=== PATIENT | female | born 1990 | race Caucasian/White ===

== ENCOUNTER 2016-12-06 04:25 | Inpatient (IN) ==
[2016-12-06 05:52] LABS: URINE SOURCE VOIDED
[2016-12-06 06:10] LABS: BILIRUBIN URINE NEGATIVE (NEGATIVE); BLOOD URINE 3+ (NEGATIVE); CLARITY SL. CLOUDY (CLEAR); COLOR YELLOW; GLUCOSE URINE NEGATIVE (NEGATIVE); LEUKOCYTES URINE TRACE (NEGATIVE); NITRITE URINE NEGATIVE (NEGATIVE); PROTEIN URINE 2+(100 mg/dL) mg/dL (NEGATIVE); SP GRAVITY URINE 1.005; UROBILINOGEN URINE NORMAL
[2016-12-06] MEDS ORDERED: KEFZOL 1 GM/D5W 1 GM/50 ML IVPB IV PRN (06:29)
[2016-12-06] MEDS ORDERED: REGLAN PO ONE (06:29)
[2016-12-06] MEDS ORDERED: ZOFRAN IV PRN (06:29)
[2016-12-06] MEDS ORDERED: PITOCIN 30 UNITS/LR 30 UNITS/500 ML IV.SOLN IV SCH (06:29)
[2016-12-06] MEDS ORDERED: TYLENOL PO PRN (06:29)
[2016-12-06] MEDS ORDERED: PEPCID IV PRN (06:29)
[2016-12-06] MEDS ORDERED: PEPCID PO PRN (06:29)
[2016-12-06] MEDS ORDERED: PEPCID PO ONE (06:29)
[2016-12-06] MEDS ORDERED: STADOL IV PRN (06:29)
[2016-12-06] MEDS ORDERED: SODIUM CHLORIDE 0.9% INJ SCH (06:30)
[2016-12-06] MEDS ORDERED: FENTANYL-BUPIV-NS 2 MCG-0.1% 200 ML EPIDURAL PRN (07:04)
[2016-12-06] MEDS: LR 1,000 ML IV SCH ×3 (07:50→16:09)
[2016-12-06 08:15] LABS: MANUAL DIFF NEEDED? NO
[2016-12-06 08:56] LABS: HEMATOCRIT 34.3 % (37.0-47.0); HEMOGLOBIN 10.9 g/dL (12.0-16.0); MCH 25.5 PG (27-31); MCHC 31.8 g/dL (33-37); MCV 80.1 FL (81-99); MPV 11.6 FL (7.4-10.4); PLT 228 X1000 (130-400); RBC 4.28 XMIL (4.2-5.4)
[2016-12-06 08:57] LABS: BASO% 0.2 % (0.0-0.8); EOS# 0.14 X1000 (0.0-0.7); EOS% 1.1 % (0.0-10.0); LYMPH# 2.22 X1000 (1.2-3.4); LYMPH% 14.8 % (20.5-51.1); MONO% 6.4 % (1.7-9.3)
[2016-12-06] MEDS ORDERED: MINERAL OIL TOP ONE ×2 (09:31→12:15)
[2016-12-06] MEDS ORDERED: XYLOCAINE-MPF 1% INJ ONE (09:31)
[2016-12-06] MEDS ORDERED: PERCOCET-5 PO PRN (17:55)
[2016-12-06] MEDS ORDERED: BENADRYL PO PRN (17:55)
[2016-12-06] MEDS ORDERED: MINERAL OIL PO PRN (17:55)
[2016-12-06] MEDS ORDERED: M-M-R II VACCINE SUBQ ONE (17:55)
[2016-12-06] MEDS ORDERED: PERCOCET-10 PO PRN (17:55)
[2016-12-06] MEDS ORDERED: BENADRYL IV PRN (17:55)
[2016-12-06] MEDS ORDERED: XYLOCAINE-MPF 1% INJ PRN (17:55)
[2016-12-06] MEDS ORDERED: PITOCIN 20 UNITS/LR 20 UNITS/1,000 ML IV.SOLN IV SCH (17:55)
[2016-12-06] MEDS ORDERED: PERI MEDS (DERMOPLAST/NUPERCAINAL/TUCKS) MISC PRN (17:55)
[2016-12-06] MEDS ORDERED: NORCO-5 PO PRN (17:55)
[2016-12-06] MEDS ORDERED: HYDROXYZINE PO PRN (17:55)
[2016-12-06] MEDS ORDERED: PITOCIN 30 UNITS/LR 30 UNITS/500 ML IV.SOLN IV ONE (17:55)
[2016-12-06] MEDS ORDERED: CYTOTEC PO PRN (17:55)
[2016-12-06] MEDS ORDERED: BOOSTRIX VACCINE IM ONE (17:55)
[2016-12-06] MEDS ORDERED: PITOCIN IM PRN (17:55)
[2016-12-06] MEDS ORDERED: HYDROXYZINE IM PRN (17:55)
[2016-12-06] MEDS ORDERED: AMBIEN PO PRN (17:55)
[2016-12-06] MEDS: PERICOLACE PO SCH (21:05)
[2016-12-07] MEDS: MOTRIN PO PRN ×2 (03:06→16:09)
[2016-12-07] MEDS: NORCO-10 PO PRN ×2 (03:06→12:08)
--- NOTE | 2016-12-07 05:26 | OPERATIVE NOTE ---
PROCEDURE DATE: 12/06/2016 DELIVERING PHYSICIAN: Esa Wesley MD TYPE OF DELIVERY: Spontaneous controlled vaginal delivery. ANESTHESIA: Epidural. FINDINGS: At 1720 hours, a 7 pound 4 ounce female infant was delivered in occipitoanterior presentation. Apgars were 9 at 1 minute and 10 at 5 minutes. SUMMARY: Sheila Pop is a 26-year-old, 2, para 1-0-0-1, at 38-1/2 weeks' gestation. Her blood type is A positive. Rubella immune. Hepatitis B surface antigen, HIV, and group B strep are negative. She presented to labor and delivery today reporting spontaneous rupture membranes that occurred about 3 a.m. She was admitted after membranes rupture was confirmed. She was on IV Pitocin and epidural placed for labor pain management. She progressed to labor without signs of distress or dystocia. She became complete and began pushing. She soon crowned. At that point, was placed in dorsal lithotomy position. A spontaneous controlled vaginal delivery occurred. There was a nuchal cord x1. Once the head was delivered, the nuchal cord was reduced. The shoulders and body delivered without complications. The cord was clamped cut. The infant was handed to the nurses for further care and evaluation. Cord blood was obtained. Placenta was spontaneously delivered and was intact. There were no cervical or vaginal lacerations. The blood loss was estimated at 100 mL. Patient remains in the LDR recovering without difficulty. cc: Esa Wesley MD
[2016-12-07 06:36] LABS: HEMATOCRIT 33.7 % (37.0-47.0); HEMOGLOBIN 10.6 g/dL (12.0-16.0); MCH 25.6 PG (27-31); MCHC 31.5 g/dL (33-37); MCV 81.4 FL (81-99); MPV 11.8 FL (7.4-10.4); RBC 4.14 XMIL (4.2-5.4)
[2016-12-07] MEDS: FLINTSTONES COMPLETE PO SCH (08:18)
[2016-12-07] MEDS: PERICOLACE PO SCH (20:17)
[2016-12-08 07:49] VITALS: BP 130/82
[2016-12-08] MEDS: FLINTSTONES COMPLETE PO SCH (08:10)
[2016-12-08] MEDS: MOTRIN PO PRN (08:10)
== END 2016-12-08 14:15 | disposition home or self-care (01) ==
LOC: P.OPLD 04:25 → P.LD 04:35 → MERGE 06:24 → P.WC 19:40
PROVIDERS: ADMIT Obstetrics & Gynecology; ATTEND Obstetrics & Gynecology